=== PATIENT | male | born 1955 | race Caucasian/White ===

== ENCOUNTER 2023-07-05 12:23 | Emergency (ER) | payer BC, OTHER ==
--- OUTSIDE RECORDS SUMMARY | 2023-07-05 12:27 | XMS REPORT | Continuity of Care Document ---
:1955 Author Organization [facility] t Address [address] [place] [address] Care Team Providers Name Role Phone Asked, No Pcp Primary Care Physician Unavailable ERASTO GOMEZ Attending Clinician Unavailable Problems This patient has no known problems. Allergies, Adverse Reactions, Alerts This patient has no known allergies or adverse reactions. Family History Family Member Diagnosis Comments Start Date Stop Date Source Natural mother Cancer [facility] Social History Social Habit Start Date Stop Date Quantity Comments Source Gender identity [facility] Sexual orientation [facility] Alcohol intake 2021-05-01 2021-05-01 Current drinker [facility] 00:00:00 00:00:00 of alcohol Hospital (finding) History of Social 2021-05-01 2021-05-[address] function 00:00:00 00:00:00 Hospital Cigarettes smoked 2021-05-01 2021-05-[address] current (pack per 00:00:00 00:00:00 Hospita l ) - Reported Cigarette 2021-05-01 2021-05-01 [facility] pack-years 00:00:00 00:00:00 Hospital Tobacco use and 2021-05-01 2021-05-01 Former smokeless [facility] exposure 00:00:00 00:00:00 tobacco user Hospital History of tobacco 2011-11-17 Chews Tobacco [facility] use 00:00:00 Hospital Sex Ass[birth year] At [birth year] [facility] 00:00:00 00:00:00 Hospital Smoking Status Start Date Stop Date Source Ex-smoker 2021-05-01 00:00:00 2021-05-01 00:00:00 [facility] Medications Ordered Filled Start Stop Current Ordering Indication Dosage Frequency Signature Comments Components Source Medication Medication Date Date Medication? Clinician (SIG) Name Name HYDROcodone Yes 52653 1{tbl} Q6H Take 1 M ethodi -acetaminop 6-[address] hen (NORCO) 10:43: mouth Hospi ta 7.5-325 mg 29 every 6 l per tablet (six) hours as needed for moderate pain .acute pain. methocarbam Yes 500mg Q.25D Take 500 Method[facility] oL 6-[address] (ROBAXIN) 10:43: mouth 4 Hospi ta 500 MG 29 (four) l tablet times a day. meloxicam Yes 15mg QD Take 15 mg Me thodi (MOBIC) 15 6-[address] mg tablet 10:43: daily. Hospit a 29 l Procedures This patient has no known procedures. Plan of Care Planned Activity Planned Date Details Comments Source Future Scheduled 2023-06-22 Screening for [facility] Test 20:17:26 malignant neoplasm of colon (procedure) [code = 658080837] Future Scheduled 2023-06-22 Screening for [facility] Test 20:17:26 malignant neoplasm of colon (procedure) [code = 553370043] Future Scheduled 2023-06-22 Screening for [facility] Test 20:17:26 malignant neoplasm of colon (procedure) [code = 619730494] Future Scheduled 2023-06-22 COVID-19 VACCINE (#1) [facility] Test 20:17:26 [code = COVID-19 VACCINE (#1)] Future Scheduled 2023-06-22 Hepatitis C screening [facility] Test 20:17:26 (procedure) [code = [id number]] Future Scheduled 2023-06-22 Screening for [facility] Test 20:17:26 malignant neoplasm of colon (procedure) [code = 697285601] Future Scheduled 2023-06-22 Screening for [facility] Test 20:17:26 malignant neoplasm of colon (procedure) [code = 850754020] Future Scheduled 2023-06-22 SHINGLES VACCINES (1 Met [facility] Test 20:17:26 of 2) [code = SHINGLES VACCINES (1 of 2)] Future Scheduled 2023-06-22 65+ [facility] 20:17[facility]26 VACCINE (1 - PCV) [code = 65+ PNEUMOCOCCAL VACCINE (1 - PCV)] Future Scheduled 2023-06-22 INFLUENZA VACCINE Method [facility] Test 20:17:26 [code = INFLUENZA VACCINE] Encounters Start End Encounter Admission Attending Care Care Encounter Source Date/Time Date/Time Type Type Clinicians Facility Department ID 2021-05-01 2021-05-01 Outpatient [facility] [id number] [place] 00:00:00 00:00:00 ERASTO [address] 2021-05-01 2021-05-01 Outpatient [facility], [facility] [id number] [address] [place] 00:00:00 00:00:00 ERASTO [address] 2021-05-01 2021-05-01 Outpatient [facility], [facility] [id number] [address] [place] 00:00:00 00:00:00 ERASTO [address] Results This patient has no known results.
[2023-07-05 13:21] LABS: Hematocrit 45.3 % (39.6-49.0); Lymphocytes % 18.3 % (15.3-44.8); MCV 92.6 fL (80-100); MPV 7.8 fL (7.6-11.3); Platelets 253 thou/uL (152-406); RBC Red Blood Cell Count 4.89 M/uL (4.33-5.43)
--- NOTE | 2023-07-05 13:22 | RAD REPORT ---
EXAM DESCRIPTION: RADChest Single View07/05/2023 1:16 pm CLINICAL HISTORY: paresthesia COMPARISON: Chest Pa And Lat (2 Views) dated 05/13/2022; Chest Pa And Lat (2 Views) dated 10/31/2020 TECHNIQUE: Portable AP view of the chest. FINDINGS: The lungs are clear. No pneumothorax or effusion. The cardiomediastinal contours are unrem arkable. IMPRESSION: No acute cardiopulmonary process.
--- NOTE | 2023-07-05 13:34 | RAD REPORT ---
EXAM DESCRIPTION: CT - Head Brain Wo Cont - 07/05/2023 1:11 pm CLINICAL HISTORY: NUMBNESS COMPARISON: No comparisons TECHNIQUE: Noncontrast head CT images were obtained without IV contrast. Multiplanar reformats were generated and reviewed. All CT scans are performed using dose optimization technique as appropriate and may include automated exposure control or mA/KV adjustment according to patient size. FINDINGS: No intracranial hemorrhage, mass, or edema. Midline structures are unremarkable. Normal ventricular caliber for age. Rodriguez-white matter differentiation is preserved, without evidence of acute infarct. No abnormal extra- axial fluid collections. Mild periventricular and deep white matter hypodensities, nonspecific, but suggestive of chronic smal l vessel ischemic changes. Mastoid air cells and visualized portions of the paranasal sinuses are clear. No acute bony findings. IMPRESSION: No evidence of an acute intracranial process.
[2023-07-05 13:41] LABS: Albumin 3.7 g/dL (3.4-5.0); Bilirubin Direct 0.1 mg/dL (0-0.2); Bilirubin Indirect, Calculated 0.3 mg/dL (0.2-0.8); Bilirubin Total 0.4 mg/dL (0.2-1.0); Magnesium 1.9 mg/dL (1.6-2.4); Potassium 4.3 mEq/L (3.5-5.1); Protein, Total 7.1 g/dL (6.4-8.2); Troponin High Sensitivity 11.9 pg/mL (<58.9)
--- NOTE | 2023-07-05 13:47 | EDPHYS ---
Physician Documentation [facility] Name: Yrn Rodrigez Age: 68 yrs Sex: Male : 1955 Arrival Date: 07/05/2023 Time: 12:23 Bed 7 Private MD: ED Physician Enoc De Jesus HPI: 07/05 12:55 This 68 yrs old Male presents to ER via Ambulatory with complaints of Numbness Of Arm. jr11 12:55 Patient is a 68-year-old here with paresthesias of the left arm, feels they are mostly jr11 on the dorsal aspect of his arm, forearm, he was concerned about this being a stroke or heart attack, denies any chest pain. Denies exertional pain, no tearing pain, does not radiate to the back, does not cross the diaphragm. No diaphoresis, no vomiting. No syncope or near-syncope. Denies any focal neurodeficit, no weakness. Patient is overall in good health. Historical: - Allergies: 12:34 No Known Allergies; nj1 - PMHx: 12:34 Chronic pain, right shoulder; nj1 - PSHx: 12:34 None; nj1 - Immunization history:: Client reports receiving the 2nd dose of the Covid vaccine. - Social history:: Smoking status: Patient denies any tobacco usage or history of. ROS: 12:55 All other systems are negative. jr11 Exam: 12:55 Constitutional: This is a well developed, well nourished patient who is awake, alert, jr11 and in no acute distress. Head/Face: Normocephalic, atraumatic. Eyes: Extra-ocular motions intact. Lids and lashes normal. Conjunctiva and sclera are non-icteric and not injected. Cornea within normal limits. Periorbital areas with no swelling, redness, or edema. ENT: Nares patent. No nasal discharge, no septal abnormalities noted. Oropharynx with no redness, swelling, or masses, exudates, or evidence of obstruction, uvula midline. Mucous membranes moist. Neck: Trachea midline, no thyromegaly or masses palpated, and no cervical lymphadenopathy. Supple, full range of motion without nuchal rigidity, or vertebral point tenderness. No Meningismus. Chest/axilla: Normal chest wall appearance and motion. Nontender with no deformity. No lesions are appreciated. Respiratory: Lungs have equal breath sounds bilaterally, clear to auscultation and percussion. No rales, rhonchi or wheezes noted. No increased work of breathing, no retractions or nasal flaring. Abdomen/GI: Soft, non-tender, with normal bowel sounds. No distension or tympany. No guarding or rebound. No evidence of tenderness throughout. Back: No spinal tenderness. No costovertebral tenderness. Full range of motion. Skin: Warm, dry with normal turgor. Normal color with no rashes, no lesions, and no evidence of cellulitis. MS/ Extremity: Pulses equal, no cyanosis. Neurovascular intact. Full, normal range of motion. Neuro: Awake and alert, GCS 15, oriented to person, place, time, and situation. No gross motor or sensory deficits. Vital Signs: 12:31 BP 158 / 77; Pulse 57; Resp 17; Temp 98.2; Pulse Ox 97% on R/A; Weight 96.16 kg; Height nj1 5 ft. 9 in. ; Pain 0/10; 12:42 BP 149 / 73; Pulse 62; Resp 16; Pulse Ox 99% ; ko1 13:46 BP 156 / 78; Pulse 52; Pulse Ox 98% on R/A; ap3 12:31 Body Mass Index 31.31 (96.16 kg, 175.26 cm) nj1 12:31 Pain Scale: Adult nj1 MDM: 12:52 Patient medically screened. jr11 12:55 Differential diagnosis: Patient is a 68-year-old with paresthesias to his left arm, no jr11 chest pain or shortness of breath. This paresthesias on exam look like they are just of the radial distribution forearm and down, likely more peripheral in nature. Given that the deficits been there for 2 days, he is not a tPA candidate or thrombolytics candidate. Patient otherwise potentially with a peripheral neuropathy, possible injury. Will CT, rule out stroke. No chest pain, low risk for ACS given that symptoms been greater than 8 hours we will send a troponin rule out ACS. No shortness of breath, doubt PE. Data reviewed: vital signs. 13:38 ED course: EKG interpreted by ok shows normal sinus rhythm, right axis deviation, jr11 nonspecific T wave inversion in lead III otherwise nondiagnostic EKG. ekg monitor tech interpreted by me shows normal sinus rhythm rate of 65. 13:45 ED course: CT head interpreted by me, no bleed. ED course: Patient D-dimer age-adjusted jr11 negative, no concern for PE, slightly elevated BNP, no concern for volume overload on exam whatsoever. Paresthesias appear to be peripheral in nature, will give a referral to neurology. 07/05 12:52 Order name: Basic Metabolic Panel; Complete Time: 13:45 [facility] 07/05 12:52 Order name: CBC with Diff; Complete Time: 13:38 07/05 12:52 Order name: D-Dimer; Complete Time: 13:38 [facility] 07/05 12:52 Order name: LFT's; Complete Time: 13:45 [facility] 07/05 12:52 Order name: Magnesium; Complete Time: 13:45 [facility] 07/05 12:52 Order name: NT PRO-BNP; Complete Time: 13:45 [facility] 07/05 12:52 Order name: Troponin HS; Complete Time: 13:45 [facility] 07/05 12:52 Order name: XRAY Chest (1 view); Complete Time: 13:38 [facility] 07/05 12:52 Order name: CT Head Brain wo Cont; Complete Time: 13:38 [facility] 07/05 12:52 Order name: EKG; Complete Time: 12:53 07/05 12:52 Order name: Cardiac monitoring; Complete Time: 12:56 07/05 12:52 Order name: EKG - Nurse/Tech; Complete Time: 13:37 07/05 12:52 Order name: IV Saline Lock; Complete Time: 13:04 [facility] 07/05 12:52 Order name: Labs collected and sent; Complete Time: 13:04 [facility] 07/05 12:52 Order name: O2 Per Protocol; Complete Time: 12:57 [facility] 07/05 12:52 Order name: O2 Sat Monitoring; Complete Time: 12:57 [facility] Administered Medications: No medications were administered Disposition Summary: 07/05/23 13:46 Discharge Ordered Location: Home jr Condition: Stable jr11 Diagnosis - Paresthesia of skin jr11 Followup: jr11 - With: Tal Ng MD - When: 2 - 3 days - Reason: Continuance of care Discharge Instructions: - Discharge Summary Sheet jr11 - Paresthesia jr11 - Peripheral Neuropathy jr11 Forms: - Medication Reconciliation Form jr11 - Thank You Letter jr11 - Antibiotic Education jr11 - Prescription Opioid Use jr11 - Patient Portal Instructions jr11 - Leadership Thank You Letter jr11 Signatures: Dispatcher [employer] Enoc Miller MD MD jr11 Stephanie Dalal RN RN nj1
--- NOTE | 2023-07-05 13:47 | ER ---
Nurse's Notes [facility] Name: Yrn Rodrigez Age: 68 yrs Sex: Male : 1955 Arrival Date: 07/05/2023 Time: 12:23 Bed 7 Private MD: Diagnosis: Paresthesia of skin Presentation: 07/05 12:31 Chief complaint: Patient states: Left arm numbness/tingling for a couple days on/off. nj1 Denies any back injury. Denies any focal weakness. Coronavirus screen: Vaccine status: Patient reports receiving the 2nd dose of the covid vaccine. Ebola Screen: Patient denies travel to an Ebola-affected area in the 21 days before illness onset. Initial Sepsis Screen: Does the patient meet any 2 criteria? No. Patient's initial sepsis screen is negative. Does the patient have a suspected source of infection? No. Patient's initial sepsis screen is negative. Risk Assessment: Do you want to hurt yourself or someone else? Patient reports no desire to harm self or others. Onset of symptoms was July 03, 2023. 12:31 Method Of Arrival: Ambulatory [facility] 12:31 Acuity: CODY 3 nj1 Historical: - Allergies: 12:34 No Known Allergies; nj1 - PMHx: 12:34 Chronic pain, right shoulder; nj1 - PSHx: 12:34 None; nj1 - Immunization history:: Client reports receiving the 2nd dose of the Covid vaccine. - Social history:: Smoking status: Patient denies any tobacco usage or history of. Screenin:42 [facility] ED Fall Risk Assessment (Adult) History of falling in the last 3 months, ko1 including since admission No falls in past 3 months (0 pts) Confusion or Disorientation No (0 pts) Intoxicated or Sedated No (0 pts) Impaired Gait No (0 pts) Mobility Assist Device Used No (0 pt) Altered Elimination No (0 pt) Score/Fall Risk Level 0 - 2 = Low Risk Oriented to surroundings, Maintained a safe environment, Educated pt \T\ family on fall prevention, incl call for assistance when getting out of bed, Assessed \T\ reinforced patient's understanding of fall precautions, Provided non-skid footwear, Hourly rounding (assess needs \T\ fall precautionary measures) done, Used ambulatory aids as needed (educated on \T\ assisted with), Used gait belt as appropriate. Abuse screen: Denies threats or abuse. Denies injuries from another. Nutritional screening: No deficits noted. Tuberculosis screening: No symptoms or risk factors identified. Assessment: 12:42 General: Appears in no apparent distress. comfortable, Behavior is calm, cooperative, ko1 appropriate for age. Pain: Denies pain. Neuro: Reports numbness in left arm tingling left arm. Cardiovascular: No deficits noted. Respiratory: No deficits noted. GI: No deficits noted. : No deficits noted. EENT: No deficits noted. Derm: No deficits noted. Musculoskeletal: No deficits noted. Vital Signs: 12:31 BP 158 / 77; Pulse 57; Resp 17; Temp 98.2; Pulse Ox 97% on R/A; Weight 96.16 kg; Height nj1 5 ft. 9 in. ; Pain 0/10; 12:42 BP 149 / 73; Pulse 62; Resp 16; Pulse Ox 99% ; ko1 13:46 BP 156 / 78; Pulse 52; Pulse Ox 98% on R/A; ap3 12:31 Body Mass Index 31.31 (96.16 kg, 175.26 cm) nj1 12:31 Pain Scale: Adult nj1 ED Course: 12:26 Patient arrived in ED. ts1 12:33 Triage completed. nj1 12:35 Arm band placed on right wrist. nj1 12:38 Enoc De Jesus MD is Attending Physician. jr11 12:42 Guillermina Kiran, JOAQUIN is Primary Nurse. ko1 12:42 Patient has correct armband on for positive identification. Bed in low position. Call ko1 light in reach. Provided Education on: NA. Pulse ox on. NIBP on. Door closed. Noise minimized. Warm blanket given. 13:04 Basic Metabolic Panel Sent. ko1 13:04 CBC with Diff Sent. ko1 13:04 D-Dimer Sent. ko1 13:04 LFT's Sent. ko1 13:04 Magnesium Sent. ko1 13:04 NT PRO-BNP Sent. ko1 13:04 Troponin HS Sent. ko1 13:13 CT Head Brain wo Cont In Process Unspecified. EDMS 13:17 XRAY Chest (1 view) In Process Unspecified. EDMS 13:46 Tal Ng MD is Referral Physician. jr11 13:50 No provider procedures requiring assistance completed. IV discontinued, intact, ko1 bleeding controlled, No redness/swelling at site. Pressure dressing applied. Administered Medications: No medications were administered Medication: 13:50 VIS not applicable for this client. ko1 Outcome: 13:46 Discharge ordered by . juana 13:50 Discharged to home ambulatory. ko1 13:50 Condition: good 13:50 Discharge instructions given to patient, Instructed on discharge instructions, follow up and referral plans. Demonstrated understanding of instructions, follow-up care. 13:59 Patient left the ED. ko1 Signatures: Dispatcher [employer] EDMS Keke Owens RN RN ap3 Enoc De Jesus MD MD jr11 Guillermina Kiran RN RN ko1 Stephanie Dalal RN RN nj1 Audelia Lackey PAS PAS ts1
[2023-07-05 14:04] VITALS: TEMP 98.2
[2023-07-05 14:05] VITALS: BP 156/78; O2SAT 98
--- NOTE | 2023-07-07 18:03 | EKG ---
Test Date: 2023-07-05 Test Time: 13:29:38 [employer] Helper [employer] Flooring: ABIMAEL MEASUREMENT RESULTS: Intervals: Rate: 0 IN: QRSD: 0 QT: 0 QTc: 0 [place]: P: IN: QRS: 0 T: 0 INTERPRETIVE STATEMENTS: No QRS complexes found, no ECG analysis possible Compared to ECG 02/14/1999 17:17:00 Sinus rhythm no longer present Electronically Signed On 07-07-23 17:58:16 CDT by Ab Leija
--- NOTE | 2023-07-07 18:03 | EKG ---
Test Date: 2023-07-05 Test Time: 13:33:04 Shake Maker: ABIMAEL MEASUREMENT RESULTS: Intervals: Rate: 49 TN: 160 QRSD: 112 QT: 400 QTc: 361 [place]: P: 45 TN: 160 QRS: 86 T: 19 INTERPRETIVE STATEMENTS: Sinus bradycardia Possible Anterior infarct, age undetermined Abnormal ECG Compared to ECG 07/05/2023 13:29:38 Myocardial infarct finding now present Electronically Signed On 07-07-23 17:58:10 CDT by Ab Leija
== END 2023-07-05 13:59 | disposition home or self-care (01) ==
LOC: ER 12:23
DX: R20.2 Paresthesia of skin (principal); G89.29 Other chronic pain
CPT/HCPCS: 36415; 70450; 71045; 80048; 80076; 83735; 83880; 84484; 85025; 85379; 93005; 99284

== ENCOUNTER 2025-08-13 11:25 | Emergency (ER) | payer OTHER ==
[2025-08-13] MEDS ORDERED: LIDOCAINE 1% 20 ML MDV ONE (11:44)
[2025-08-13] MEDS ORDERED: LIDOCAINE 1% MPF 5 ML VIAL ONE (11:46)
--- NOTE | 2025-08-13 12:40 | ER ---
Nurse's Notes [facility] Name: Yrn Rodrigez Age: 70 yrs Sex: Male : 1955 Arrival Date: 08/13/2025 Time: 11:25 Bed 15 Private MD: Diagnosis: Bitten by dog;Laceration without foreign body of right ring finger without damage to nail Presentation: 08/13 11:38 Chief complaint: Patient states: dog bite to right ring finger. Coronavirus screen: At af3 this time, the client does not indicate any symptoms associated with coronavirus-19. Ebola Screen: No symptoms or risks identified at this time. Initial Sepsis Screen: Does the patient meet any 2 criteria? No. Patient's initial sepsis screen is negative. Does the patient have a suspected source of infection? No. Patient's initial sepsis screen is negative. Risk Assessment: Do you want to hurt yourself or someone else? Patient reports no desire to harm self or others. Onset of symptoms was August 13, 2025. 11:38 Method Of Arrival: Ambulatory af3 11:38 Acuity: CODY 4 af3 Triage Assessment: 11:39 Bite description: bite sustained to palmar aspect of distal phalanx of right ring af3 finger by a dog, animal information: vaccination(s) is current. General: Appears in no apparent distress. comfortable, well groomed, well developed, Behavior is calm, cooperative, appropriate for age. Pain: Complains of pain in palmar aspect of distal phalanx of right ring finger. Neuro: Level of Consciousness is awake, alert, obeys commands, Oriented to person, place, time, situation, Appropriate for age. Cardiovascular: Patient's skin is warm and dry. Respiratory: Airway is patent Respiratory effort is even, unlabored, Respiratory pattern is regular, symmetrical. Historical: - Allergies: 11:39 No Known Allergies; af3 - PMHx: 11:39 Chronic pain; af3 - Immunization history:: Adult Immunizations up to date. - Infectious Disease History:: Denies. - Social history:: Smoking status: Patient denies any tobacco usage or history of. - Family history:: not pertinent. - Hospitalizations: : No recent hospitalization is reported. Screenin:10 [facility] ED Fall Risk Assessment (Adult) History of falling in the last 3 months, kj2 including since admission No falls in past 3 months (0 pts) Confusion or Disorientation No (0 pts) Intoxicated or Sedated No (0 pts) Impaired Gait No (0 pts) Mobility Assist Device Used No (0 pt) Altered Elimination No (0 pt) Score/Fall Risk Level 0 - 2 = Low Risk Maintained a safe environment, Hourly rounding (assess needs \T\ fall precautionary measures) done. Abuse screen: Denies threats or abuse. Denies injuries from another. Nutritional screening: No deficits noted. Tuberculosis screening: No symptoms or risk factors identified. Assessment: 12:20 General: Appears in no apparent distress. Behavior is cooperative. Pain: Complains of kj2 pain in right hand and palmar aspect of distal phalanx of right ring finger Pain currently is 2 out of 10 on a pain scale. Neuro: Level of Consciousness is awake, alert, obeys commands, Oriented to person, place, time, situation. Cardiovascular: Patient's skin is warm and dry. Respiratory: Airway is patent Respiratory effort is unlabored. GI: No deficits noted. : No deficits noted. Derm: Skin laceration repaired by MD Skin is pink, warm \T\ dry. 13:00 Reassessment: Patient appears in no apparent distress at this time. Patient is alert, kj2 oriented x 3, equal unlabored respirations, skin warm/dry/pink. Vital Signs: 11:38 BP 150 / 78; Pulse 70; Resp 18; Pulse Ox 98% on R/A; Weight 90.72 kg; Height 5 ft. 9 af3 in. ; 12:10 BP 145 / 79; Pulse 72; Resp 20; Pulse Ox 100% on R/A; kj2 13:00 BP 138 / 78; Pulse 68; Resp 18; Temp 98; Pulse Ox 100% on R/A; kj2 11:38 Body Mass Index 29.53 (90.72 kg, 175.26 cm) af3 ED Course: 11:26 Patient arrived in ED. ts1 11:30 Addison Stephens MD is Attending Physician. rn 11:39 Triage completed. af3 11:39 Arm band placed on. af3 12:10 Patient has correct armband on for positive identification. Bed in low position. Call kj2 light in reach. Provided Education on: call light. 12:53 Renee Nicole, RN is Primary Nurse. kj2 12:56 No provider procedures requiring assistance completed. kj2 12:58 IV discontinued, intact, bleeding controlled, No redness/swelling at site. Pressure kj2 dressing applied. Administered Medications: 12:57 Drug: Lidocaine Infiltration (1 %) 1 vials 5 ml Infiltration once; to bedside {Note: kj2 administered by MD.} Volume: 5 ml; Route: Infiltration; 12:57 Follow up: Response: No adverse reaction kj2 Medication: 12:57 VIS not applicable for this client. kj2 Outcome: 12:39 Discharge ordered by . rn 12:57 Discharged to home ambulatory, kj2 12:57 Condition: stable 12:57 Discharge instructions given to patient, Instructed on discharge instructions, follow up and referral plans. Demonstrated understanding of instructions, follow-up care, 13:27 Patient left the ED. kj2 Signatures: Addison Stephens MD MD rn Simpson, Tanya, PAS PAS ts1 Renee Nicole RN RN kj2 Ciera Stubbs RN RN af3
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
[2025-08-13 13:44] VITALS: O2SAT 100
[2025-08-13 13:45] VITALS: BP 138/78; TEMP 98
== END 2025-08-13 13:27 | disposition home or self-care (01) ==
LOC: ER 11:25
PROC: 0JQJ3ZZ Repair Right Hand Subcutaneous Tissue and Fascia, Percutaneous Approach (ICD-10-PCS; principal; 2025-08-13)
DX: S61.214A Laceration without foreign body of right ring finger without damage to nail, initial encounter (principal); W54.0XXA Bitten by dog, initial encounter; Y93.89 Activity, other specified; Y92.019 Unspecified place in single-family (private) house as the place of occurrence of the external cause
CPT/HCPCS: 99283; 12042; 12002; J2003

== ENCOUNTER 2025-08-21 10:17 | Emergency (ER) | payer OTHER ==
--- NOTE | 2025-08-21 10:34 | EDPHYS ---
Physician Documentation [facility] Name: Yrn Rodrigez Age: 70 yrs Sex: Male : 1955 Arrival Date: 08/21/2025 Time: 10:17 Bed IW1 Private MD: ED Physician Mann Campbell HPI: 08/21 10:33 This 70 yrs old Male presents to ER via Ambulatory with complaints of Suture Removal. sb4 10:33 The patient has sutures on the palmar aspect of distal phalanx of right ring finger. sb4 Previous treatment: The patient was initially treated 8 day(s) ago, the care was rendered at [facility], Treatment type: The patient's original treatment included sutures. Sutures/kevin progress: The patient's wound displays wound dehiscence. Sustained dog bite to finger 8 days ago, had sutures done, states he does not think he has been gentle and up with his finger and the wound has reopened. Has been taking antibiotics. Denies any fever or chills. Historical: - Allergies: 10:30 No Known Allergies; iw - PMHx: 10:29 Chronic pain; iw ROS: 10:33 Constitutional: Negative for fever, chills, and weight loss, sb4 10:33 Skin: Positive for per HPI, 10:33 All other systems are negative, Exam: 10:33 Constitutional: This is a well developed, well nourished patient who is awake, alert, sb4 and in no acute distress. Head/Face: Normocephalic, atraumatic. Eyes: Extra-ocular motions intact. Periorbital areas with no swelling, redness, or edema. ENT: Mucous membranes moist. Respiratory: No increased work of breathing, no retractions or nasal flaring. 10:33 Skin: Wound recheck: Suture laceration closure: no erythema, no swelling, mild dehiscence, mild drainage, Vital Signs: 10:30 BP 124 / 87; Pulse 79; Resp 16; Temp 98.1; Pulse Ox 100% on R/A; iw Procedures: 10:33 Suture/Staple removal: Removed 6 sutures, from palmar aspect of distal phalanx of right sb4 ring finger, site appears gaping, dressed with band aid, Neosporin, Patient tolerated well. MDM: 10:25 Medical Screening Exam initiated sb4 10:36 Data reviewed: vital signs, nurses notes, and as a result, I will discharge patient. sb4 Counseling: I had a detailed discussion with the patient and/or guardian regarding the historical points, exam findings, and any diagnostic results supporting the discharge/admit diagnosis, the need for outpatient follow up, for definitive care, to return to the emergency department if symptoms worsen or persist or if there are any questions or concerns that arise at home. ED course: Wound has opened, sutures are not holding the wound together and it has been 8 days. The sutures and allow wound to heal by secondary intention. Advised to continue course of p.o. antibiotics and to return if there are any signs of delayed healing or infection. Administered Medications: No medications were administered Disposition Summary: 08/21/25 10:33 Discharge Ordered Notes: Location: Home sb4 Problem: new sb4 Symptoms: have improved sb4 Condition: Stable sb4 Diagnosis - Encounter for removal of sutures sb4 - Disruption of wound, unspecified sb4 Followup: sb4 - With: Private Physician - When: As needed - Reason: Fever > 102 F, Worsening of condition Discharge Instructions: - Discharge Summary Sheet sb4 - Nonsutured Laceration Care sb4 - Suture Removal, Care After sb4 Forms: - Patient Portal Instructions sb4 - Leadership Thank You Letter sb4 Addendum: 08/31/2025 08:04 Co-signature as Attending Physician, Mann Campbell MD I agree with the assessment and c dumas plan of care. Signatures: Mann Campbell MD MD cha Williams, Irene, RN RN Verónica Valencia PA-C PATerryC sb4 Corrections: (The following items were deleted from the chart) 08/21 10:41 10:33 The patient has sutures on the palmar aspect of distal phalanx of right index sb4 finger, sb4 10:42 10:33 Suture/Staple removal: Removed 6 sutures, from palmar aspect of distal phalanx of sb4 right index finger, site appears gaping, dressed with band aid, Neosporin, Patient tolerated well, sb4
--- NOTE | 2025-08-21 10:34 | ER ---
Nurse's Notes [facility] Name: Yrn Rodrigez Age: 70 yrs Sex: Male : 1955 Arrival Date: 08/21/2025 Time: 10:17 Bed IW1 Private MD: Diagnosis: Encounter for removal of sutures;Disruption of wound, unspecified Presentation: 08/21 10:29 Coronavirus screen: At this time, the client does not indicate any symptoms associated iw with coronavirus-19. Ebola Screen: No symptoms or risks identified at this time. Initial Sepsis Screen: Does the patient meet any 2 criteria? No. Patient's initial sepsis screen is negative. Does the patient have a suspected source of infection? No. Patient's initial sepsis screen is negative. Risk Assessment: Do you want to hurt yourself or someone else? Patient reports no desire to harm self or others. 10:29 Acuity: CODY 4 iw 10:29 Method Of Arrival: Ambulatory iw 10:30 Chief complaint: Patient states: suture check to right ring finger. Onset of symptoms iw was August 11, 2025. Triage Assessment: 10:30 General: Appears in no apparent distress. Behavior is calm, cooperative. iw Historical: - Allergies: 10:30 No Known Allergies; iw - PMHx: 10:29 Chronic pain; iw Screenin:40 [facility] ED Fall Risk Assessment (Adult) History of falling in the last 3 months, iw including since admission No falls in past 3 months (0 pts) Confusion or Disorientation No (0 pts) Intoxicated or Sedated No (0 pts) Impaired Gait No (0 pts) Mobility Assist Device Used No (0 pt) Altered Elimination No (0 pt) Score/Fall Risk Level 0 - 2 = Low Risk Oriented to surroundings, Maintained a safe environment. Abuse screen: Denies threats or abuse. Denies injuries from another. Nutritional screening: No deficits noted. Tuberculosis screening: No symptoms or risk factors identified. Vital Signs: 10:30 BP 124 / 87; Pulse 79; Resp 16; Temp 98.1; Pulse Ox 100% on R/A; iw ED Course: 10:22 Patient arrived in ED. sj2 10:24 Verónica Knutson PA-C is PHCP. sb4 10:24 Mann Campbell MD is Attending Physician. sb4 10:29 Triage completed. iw 10:38 No provider procedures requiring assistance completed. Patient did not have IV access iw during this emergency room visit. 10:39 Carmen Yusuf, RN is Primary Nurse. iw 10:40 Arm band placed on. iw Administered Medications: No medications were administered Medication: 10:35 VIS not applicable for this client. iw Outcome: 10:33 Discharge ordered by . sb4 10:39 Discharged to home ambulatory, iw 10:39 Condition: good 10:39 Discharge instructions given to patient, 10:39 No charge visit due to suture removal. 10:44 Patient left the ED. iw Signatures: Carmen Yusuf, RN RN Verónica Valencia, PA-C PA-C sb4 Ryan Smith sj2
== END 2025-08-21 10:44 | disposition home or self-care (01) ==
LOC: ER 10:17
DX: Z48.02 Encounter for removal of sutures (principal); T81.30XA Disruption of wound, unspecified, initial encounter